=== PATIENT | female | born 1985 | race American Indian/Alaskan Native ===

== ENCOUNTER 2016-07-31 01:48 | Emergency (ER) | payer OTHER ==
[2016-07-31 02:55] LABS: Basophils % (Auto) 0.3 % (0.0-1.8); Eosinophils % (Auto) 1.6 % (0.0-4.3); Hematocrit 39.6 % (30.3-42.9); Hemoglobin 12.7 gm/dl (10.1-14.3); Mean Corpuscular HGB Conc 32 % (30-34); Mean Corpuscular Hemoglobin 27 pg (28-32); Mean Corpuscular Volume 83 fl (79-97); Platelet Count 270 K/mm3 (140-440); Red Blood Count 4.78 M/mm3 (3.65-5.03); Red Cell Distribution Width 14.6 % (13.2-15.2); White Blood Count 12.8 K/mm3 (4.5-11.0)
[2016-07-31 03:47] LABS: Alanine Aminotransferase 11 units/L (7-56); Albumin 3.7 g/dL (3.9-5); Albumin/Globulin Ratio 0.9 %; Alkaline Phosphatase 63 units/L (35-129); Anion Gap 18 mmol/L; BUN/Creatinine Ratio 12.85; Blood Urea Nitrogen 9 mg/dL (7-17); Calcium 9.1 mg/dL (8.4-10.2); Carbon Dioxide 21 mmol/L (22-30); Chloride 102.3 mmol/L (98-107); Glucose 105 mg/dL (65-100); Potassium 3.7 mmol/L (3.6-5.0); Sodium 138 mmol/L (137-145); Total Protein 7.6 g/dL (6.3-8.2)
[2016-07-31 09:15] LABS: Bacteria,Urine 2+ /HPF (Negative); Bilirubin,Urine NEG (Negative); Blood,Urine NEG (Negative); Ketones,Urine NEG (Negative); Leukocyte Esterase,Urine TR (Negative); Nitrite,Urine NEG (Negative); Protein,Urine <15 mg/dL mg/dL (Negative); Urobilinogen,Urine < 2.0 mg/dL (<2.0)
--- NOTE | 2016-07-31 12:56 | Ultrasound Report ---
TRANSABDOMINAL AND TRANSVAGINAL OBSTETRICAL ULTRASOUND:07/31/16 01:48:00 CLINICAL: Early with pain and vaginal bleeding after intercourse. FINDINGS: Transabdominal and transvaginal ultrasound demonstrated a single intrauterine gestational sac and living fetus. [place]-rump length measured 17.2 mm corresponding to a gestational age = 8 weeks, 1 day. heart rate = 172 beats/min. Normal appearance of the gestational sac, fetus and yolk sac. Closed cervix. No subchorionic hemorrhage. A fundal subserosal fibroid measures 2.8 x 2.6 x 2.4 cm. No adnexal mass or free fluid. A 1.8 cm cyst of the left ovary. Normal right ovary. The right ovary measured 2.4 x 1.6 x 3.0cm. The left ovary measured 3.5 x 2.4 x 2.2cm. The uterus measured 11.9 x 7.1 x 8.4cm. IMPRESSION: Single living intrauterine fetus at 8 weeks, 1 day based on crown-rump length measurement. A single 2.8 cm fundal fibroid. Normal ovaries with a small left corpus luteum cyst. EDC based on ultrasound is 03/11/17. EDC based on LMP is 03/14/17.
[2016-07-31] MEDS ORDERED: NACL 0.9% 1000 ML 1,000 ML IV ONE (13:36)
--- NOTE | 2016-07-31 14:17 | Emergency Department Report ---
ED Abdominal Pain HPI - General Chief Complaint: Abdominal Pain Stated Complaint: 8 WKS W/LT SIDE PAIN/HEADACHE/VOMITING Time Seen by Provider: 07/31/16 13:23 Source: patient Mode of arrival: Ambulatory Limitations: No Limitations - History of Present Illness Initial Comments: PT c/o vomiting x 2 days. PT states she came to the ED last night after she vomited and noticed some streaks of blood. PT states she is 7 weeks . PT states she had some vaginal bleeding after intercourse last week. PT states she had a routine OB/ P[facility]ER D[facility]URE appointment on 07-28-16 and was told that this can be normal. PT states that she was also given dissolvable tablets for nausea, but so far, they have not helped. G 2 P 1 Complaint: flank pain Onset/Timin -: Gradual, days(s) Location: L flank Severity: severe Severity scale (0 -10): 10 Consistency: constant Improves With: nothing Worsens With: eating, vomiting Context: other ( ) Associated Symptoms: nausea, vomiting. denies: diarrhea, dysuria, hematochezia , melena, hematuria, syncope - Related Data LMP (females 10-50): Previous Rx's Medication Instructions Recorded Last Taken Type ALBUTEROL Inhaler [ProAir HFA 2 puff IH QID PRN #1 inhalation 04/27/14 Unknown Rx Inhaler] Cetirizine HCl [Allergy Relief] 10 mg PO DAILY #10 tablet 04/27/14 Unknown Rx Vit-Fe Fumar-FA [ 1 tab PO QDAY #30 tablet 07/31/16 Unknown Rx Vitamin] Promethazine [Phenergan TAB] 12.5 mg PO Q6HR PRN #10 tab 07/31/16 Unknown Rx Allergies Allergy/AdvReac Type Severity Reaction Status Date / Time No Known Allergies Allergy Verified 01/19/13 21:38 ED Review of Systems ROS: Stated complaint: 8 WKS W/LT SIDE PAIN/HEADACHE/VOMITING Other details as noted in HPI Comment: All other systems reviewed and negative Constitutional: malaise. denies: chills, fever Respiratory: denies: cough Gastrointestinal: abdominal pain, nausea, vomiting, hematemesis (streaks of blood were seen in emesis x 1 ), other (pt states she had soft bm yesterday ). denies: diarrhea, constipation, melena, hematochezia Musculoskeletal: back pain Neurological: headache ED Past Medical Hx - Past Medical History Previous Medical History?: Yes Hx Hypertension: No Hx CVA: No Hx Heart Attack/AMI: No Hx Congestive Heart Failure: No Hx Diabetes: No Hx Deep Vein Thrombosis: No Hx Pulmonary Embolism: No Hx GERD: No Hx Liver Disease: No Hx Renal Disease: No Hx Sickle Cell Disease: No Hx Arthritis: No Hx Headaches / Migraines: No Hx Seizures: No Hx Kidney Stones: No Hx Psychiatric Treatment: No Hx Asthma: Yes Hx COPD: No Hx Tuberculosis: No Hx Dementia: No Hx HIV: No - Surgical History Past Surgical History?: No Hx Coronary Stent: No Hx Open Heart Surgery: No Hx Pacemaker: No Hx Internal Defibrillator: No Hx Cholecystectomy: No Hx Appendectomy: No Hx Breast Surgery: No - Social History Smoking Status: Never Smoker Substance Use Type: None - Medications Home Medications: Home Medications Medication Instructions Recorded Confirmed Last Taken Type ALBUTEROL Inhaler [ProAir HFA 2 puff IH QID PRN #1 inhalation 04/27/14 Unknown Rx Inhaler] Cetirizine HCl [Allergy Relief] 10 mg PO DAILY #10 tablet 04/27/14 Unknown Rx Vit-Fe Fumar-FA [ 1 tab PO QDAY #30 tablet 07/31/16 Unknown Rx Vitamin] Promethazine [Phenergan TAB] 12.5 mg PO Q6HR PRN #10 tab 07/31/16 Unknown Rx ED Physical Exam - General Limitations: No Limitations General appearance: alert, in no apparent distress - Head Head exam: Present: atraumatic, normocephalic, normal inspection - Eye Eye exam: Present: normal appearance, PERRL, EOMI. Absent: conjunctival injection - ENT ENT exam: Present: normal exam, mucous membranes moist - Neck Neck exam: Present: normal inspection, full ROM - Respiratory Respiratory exam: Present: normal lung sounds bilaterally. Absent: respiratory distress - Cardiovascular Cardiovascular Exam: Present: regular rate, normal rhythm, normal heart sounds - GI/Abdominal GI/Abdominal exam: Present: soft, normal bowel sounds. Absent: tenderness, guarding, rebound - Extremities Exam Extremities exam: Present: normal inspection, full ROM - Back Exam Back exam: Present: normal inspection, full ROM. Absent: tenderness, CVA tenderness (R), CVA tenderness (L), paraspinal tenderness, vertebral tenderness - Neurological Exam Neurological exam: Present: alert, oriented X3 - Psychiatric Psychiatric exam: Present: normal affect, normal mood - Skin Skin exam: Present: warm, dry, intact, normal color ED Course Vital Signs 07/31/16 07/31/16 07/31/16 02:02 08:33 17:15 Temperature 97.5 F L 98.7 F Pulse Rate 69 48 L 76 Respiratory 16 18 16 Rate Blood Pressure 127/90 123/75 Blood Pressure 127/79 [Left] O2 Sat by Pulse 99 100 98 Oximetry - Reevaluation(s) Reevaluation #1: 07/31/16 15:42 PT aware of lab work. PT's IVFs infusing. PT has no complaints at this time, no nausea. Reevaluation #2: 07/31/16 16:53 PT's fluids are completed. PT states her nausea is returning but she does not want any medication for it at this time. PT has been in ED for 15 hours and she is wanting dc home. PT has not had any vomiting since being placed in exam room. PT given strict return precautions. - Pulse Oximetry Interpretation Digit-Finger Initial Pulse Oximetry Readin Actions Taken: none ED Medical Decision Making - Lab Data Result diagrams: 07/31/16 02:20 07/31/16 02:20 Labs 07/31/16 07/31/16 07/31/16 02:20 02:20 02:20 WBC 12.8 H RBC 4.78 Hgb 12.7 Hct 39.6 MCV 83 MCH 27 L MCHC 32 RDW 14.6 Plt Count 270 Lymph % (Auto) 21.0 [place] % (Auto) 8.7 H Eos % (Auto) 1.6 Baso % (Auto) 0.3 Lymph # 2.7 [place] # 1.1 H Eos # 0.2 Baso # 0.0 Seg Neutrophils % 68.4 Seg Neutrophils # 8.7 H PT INR APTT Sodium 138 Potassium 3.7 Chloride 102.3 Carbon Dioxide 21 L Anion Gap 18 BUN 9 Creatinine 0.7 Estimated GFR > 60 BUN/Creatinine Ratio 12.85 Glucose 105 H Calcium 9.1 Total Bilirubin 0.30 AST 16 ALT 11 Alkaline Phosphatase 63 Total Protein 7.6 Albumin 3.7 L Albumin/Globulin Ratio 0.9 Lipase HCG, Qual Positive HCG, Quant Urine Color Urine Turbidity Urine pH Ur Specific [place] Urine Protein Urine Glucose (UA) Urine Ketones Urine Blood Urine Nitrite Urine Bilirubin Urine Urobilinogen Ur Leukocyte Esterase Urine WBC (Auto) Urine RBC (Auto) U Epithel Cells (Auto) Urine Bacteria (Auto) Blood Type 07/31/16 07/31/16 07/31/16 02:20 08:58 12:39 WBC RBC Hgb Hct MCV MCH MCHC RDW Plt Count Lymph % (Auto) [place] % (Auto) Eos % (Auto) Baso % (Auto) Lymph # [place] # Eos # Baso # Seg Neutrophils % Seg Neutrophils # PT INR APTT Sodium Potassium Chloride Carbon Dioxide Anion Gap BUN Creatinine Estimated GFR BUN/Creatinine Ratio Glucose Calcium Total Bilirubin AST ALT Alkaline Phosphatase Total Protein Albumin Albumin/Globulin Ratio Lipase 24 HCG, Qual HCG, Quant 690302 H Urine Color Yellow Urine Turbidity Slightly-cloudy Urine pH 6.0 Ur Specific [place] 1.025 Urine Protein <15 mg/dl Urine Glucose (UA) Neg Urine Ketones Neg Urine Blood Neg Urine Nitrite Neg Urine Bilirubin Neg Urine Urobilinogen < 2.0 Ur Leukocyte Esterase Tr Urine WBC (Auto) 1.0 Urine RBC (Auto) 3.0 U Epithel Cells (Auto) 2.0 Urine Bacteria (Auto) 2+ Blood Type 07/31/16 07/31/16 14:03 14:03 WBC RBC Hgb Hct MCV MCH MCHC RDW Plt Count Lymph % (Auto) [place] % (Auto) Eos % (Auto) Baso % (Auto) Lymph # [place] # Eos # Baso # Seg Neutrophils % Seg Neutrophils # PT 13.5 INR 1.04 APTT 26.4 Sodium Potassium Chloride Carbon Dioxide Anion Gap BUN Creatinine Estimated GFR BUN/Creatinine Ratio Glucose Calcium Total Bilirubin AST ALT Alkaline Phosphatase Total Protein Albumin Albumin/Globulin Ratio Lipase HCG, Qual HCG, Quant Urine Color Urine Turbidity Urine pH Ur Specific [place] Urine Protein Urine Glucose (UA) Urine Ketones Urine Blood Urine Nitrite Urine Bilirubin Urine Urobilinogen Ur Leukocyte Esterase Urine WBC (Auto) Urine RBC (Auto) U Epithel Cells (Auto) Urine Bacteria (Auto) Blood Type B POSITIVE - Radiology Data Radiology results: report reviewed US ob - single IUP with heart beat - Differential Diagnosis uti, dehydration, hyperemesis Critical Care Time: No Critical care attestation.: If time is entered above; I have spent that time in minutes in the direct care of this critically ill patient, excluding procedure time. ED Disposition Clinical Impression: Nausea and vomiting during Back pain Qualifiers: Back pain location: low back pain Chronicity: acute Back pain laterality: left Sciatica presence: without sciatica Qualified Code(s): M54.5 - Low back pain Disposition: TO HOME OR SELFCARE Is pt being admited?: No Does the pt Need Aspirin: No Condition: Stable Instructions: Morning Sickness (ED), Hyperemesis Gravidarum (ED), Abdominal Pain (ED) Additional Instructions: Call your OB/ [facility] D[facility] on Tuesday Eat small frequent meals No driving or ETOH After taking phenergan Prescriptions: Vit-Fe Fumar-FA [ Vitamin] 1 tab PO QDAY #30 tablet Promethazine [Phenergan TAB] 12.5 mg PO Q6HR PRN #10 tab PRN Reason: Nausea Referrals: PRIMARY CARE,MD [Primary Care Provider] - 3-5 Days Forms: Work/School Release Form(ED) Time of Disposition: 17:00
[2016-07-31 14:58] LABS: INR 1.04 (0.87-1.13)
[2016-07-31 14:59] LABS: Partial Thromboplastin Time 26.4 Sec. (24.2-36.6)
[2016-07-31 22:00] VITALS: BP 127/79
== END 2016-07-31 17:15 | disposition home or self-care (01) ==
LOC: ED 01:48
DX: O21.9 Vomiting of pregnancy, unspecified (principal); R11.0 Nausea; M54.5 Low back pain; J45.909 Unspecified asthma, uncomplicated; Z3A.01 Less than 8 weeks gestation of pregnancy
CPT/HCPCS: 36415; 76801; 76817; 80053; 81001; 83690; 84702; 84703; 85025; 85610; 85730; 86900; 86901; 87086; 96360; 99284; J7030

== ENCOUNTER 2017-07-11 11:32 | Emergency (ER) | payer OTHER ==
[2017-07-11 12:38] VITALS: BP 129/78
== END 2017-07-11 13:16 | disposition left against medical advice (07) ==
LOC: ED 11:32
DX: M79.602 Pain in left arm (principal); Z53.21 Procedure and treatment not carried out due to patient leaving prior to being seen by health care provider

== ENCOUNTER 2017-11-05 01:17 | Emergency (ER) | payer MEDICAID, OTHER ==
--- NOTE | 2017-11-05 03:12 | XRay Report ---
FINAL REPORT PROCEDURE: XR CHEST ROUTINE 2V TECHNIQUE: PA and lateral chest radiographs were obtained. CPT 15057 HISTORY: Shortness of breath COMPARISON: No prior studies are available for comparison. FINDINGS: Heart: Normal. Mediastinum/Vessels: Normal. Lungs/Pleural space: Normal. Bony thorax: No acute osseous abnormality. Other: IMPRESSION: Normal examination.
--- NOTE | 2017-11-05 03:44 | Emergency Department Report ---
ED Shortness of Breath HPI - General Chief Complaint: Dyspnea/Respdistress Stated Complaint: DIFFICULT BREATHING Time Seen by Provider: 11/05/17 03:36 Source: patient Mode of arrival: Ambulatory Limitations: No Limitations - Related Data Previous Rx's Medication Instructions Recorded Last Taken Type ALBUTEROL Inhaler (OR & NICU) 2 puff IH QID PRN #1 inhalation 04/27/14 Unknown Rx [ProAir HFA Inhaler] Vit-Fe Fumar-FA [ 1 tab PO QDAY #30 tablet 07/31/16 Unknown Rx Vitamin] Promethazine [Phenergan TAB] 12.5 mg PO Q6HR PRN #10 tab 07/31/16 Unknown Rx Cetirizine HCl [Allergy Relief] 10 mg PO DAILY #30 tablet 11/05/17 Unknown Rx Fluticasone [Flonase] 1 spray NS QDAY #1 bottle 11/05/17 Unknown Rx Oxymetazoline 0.05% [Afrin] 1 spray NS QHS 3 Days #1 bottle 11/05/17 Unknown Rx Allergies Allergy/AdvReac Type Severity Reaction Status Date / Time No Known Allergies Allergy Verified 01/19/13 21:38 ED Review of Systems ROS: Stated complaint: DIFFICULT BREATHING Other details as noted in HPI ED Past Medical Hx - Past Medical History Previous Medical History?: Yes Hx Hypertension: No Hx CVA: No Hx Heart Attack/AMI: No Hx Congestive Heart Failure: No Hx Diabetes: No Hx Deep Vein Thrombosis: No Hx Pulmonary Embolism: No Hx GERD: No Hx Liver Disease: No Hx Renal Disease: No Hx Sickle Cell Disease: No Hx Arthritis: No Hx Headaches / Migraines: No Hx Seizures: No Hx Kidney Stones: No Hx Psychiatric Treatment: No Hx Asthma: Yes Hx COPD: No Hx Tuberculosis: No Hx Dementia: No Hx HIV: No - Surgical History Hx Coronary Stent: No Hx Open Heart Surgery: No Hx Pacemaker: No Hx Internal Defibrillator: No Hx Cholecystectomy: No Hx Appendectomy: No Hx Breast Surgery: No - Social History Smoking Status: Never Smoker Substance Use Type: None - Medications Home Medications: Home Medications Medication Instructions Recorded Confirmed Last Taken Type ALBUTEROL Inhaler (OR & NICU) 2 puff IH QID PRN #1 inhalation 04/27/14 Unknown Rx [ProAir HFA Inhaler] Vit-Fe Fumar-FA [ 1 tab PO QDAY #30 tablet 07/31/16 Unknown Rx Vitamin] Promethazine [Phenergan TAB] 12.5 mg PO Q6HR PRN #10 tab 07/31/16 Unknown Rx Cetirizine HCl [Allergy Relief] 10 mg PO DAILY #30 tablet 11/05/17 Unknown Rx Fluticasone [Flonase] 1 spray NS QDAY #1 bottle 11/05/17 Unknown Rx Oxymetazoline 0.05% [Afrin] 1 spray NS QHS 3 Days #1 bottle 11/05/17 Unknown Rx ED Physical Exam - General Limitations: No Limitations General appearance: alert, in no apparent distress - Head Head exam: Present: atraumatic, normocephalic - ENT ENT exam: Present: mucous membranes moist, TM's normal bilaterally - Expanded ENT Exam Expanded Throat exam: Positive: tonsillar erythema. Negative: tonsillomegaly, tonsillar exudate - Neck Neck exam: Present: normal inspection, full ROM - Respiratory Respiratory exam: Present: normal lung sounds bilaterally. Absent: respiratory distress - Cardiovascular Cardiovascular Exam: Present: regular rate, normal rhythm. Absent: systolic murmur, diastolic murmur, rubs, gallop - Extremities Exam Extremities exam: Present: normal inspection, full ROM - Neurological Exam Neurological exam: Present: alert, oriented X3 - Psychiatric Psychiatric exam: Present: normal affect, normal mood - Skin Skin exam: Present: warm, dry, intact, normal color. Absent: rash ED Course Vital Signs 11/05/17 01:46 Temperature 97.7 F Pulse Rate 57 L Respiratory 17 Rate Blood Pressure 124/82 O2 Sat by Pulse 99 Oximetry ED Medical Decision Making - Radiology Data Radiology results: report reviewed FINAL REPORT PROCEDURE: XR CHEST ROUTINE 2V TECHNIQUE: PA and lateral chest radiographs were obtained. CPT 58619 HISTORY: Shortness of breath COMPARISON: No prior studies are available for comparison. FINDINGS: Heart: Normal. Mediastinum/Vessels: Normal. Lungs/Pleural space: Normal. Bony thorax: No acute osseous abnormality. Other: IMPRESSION: Normal examination. Transcribed By: [facility] Dictated By: KAYLAN RAGLAND MD Electronically Authenticated By: KAYLAN RAGLAND MD Signed Date/Time: 11/05/17310 DD/ 0 TD/TT: 11/05/17310 Critical care attestation.: If time is entered above; I have spent that time in minutes in the direct care of this critically ill patient, excluding procedure time. ED Disposition Clinical Impression: Allergic rhinitis Qualifiers: Allergic rhinitis trigger: unspecified Allergic rhinitis seasonality: unspecified Qualified Code(s): J30.9 - Allergic rhinitis, unspecified Disposition: DC- TO HOME OR SELFCARE Is pt being admited?: No Does the pt Need Aspirin: No Condition: Stable Instructions: Allergic Rhinitis (ED) Additional Instructions: Please take medication as prescribed symptoms persist or gets worse please follow-up with the primary care provider. Prescriptions: Oxymetazoline 0.05% [Afrin] 1 spray NS QHS 3 Days #1 bottle Cetirizine HCl [Allergy Relief] 10 mg PO DAILY #30 tablet Fluticasone [Flonase] 1 spray NS QDAY #1 bottle Referrals: PRIMARY CARE, [Primary Care Provider] - 3-5 Days Forms: Work/School Release Form(ED)
[2017-11-05 06:08] VITALS: BP 122/88
== END 2017-11-05 04:20 | disposition home or self-care (01) ==
LOC: ED 01:17
DX: J30.9 Allergic rhinitis, unspecified (principal)
CPT/HCPCS: 71046; 93005; 93010; 99283